=== PATIENT | male | born 2005 | race African-American/Black ===

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

== ENCOUNTER 2025-04-10 09:41 | Emergency (ER) | payer BC, SELFPAY ==
[2025-04-10 09:52] VITALS: BP 108/73; PULSE 66; RESP 18; TEMP 36.9; O2SAT 99; BMI 22.4
[2025-04-10 10:24] LABS: IDNOW Serial# 55D5AD1C; Strep A Nucleic Acid Negative (Negative)
[2025-04-10 11:01] LABS: Influenza A PCR NEGATIVE (Negative); Influenza B PCR NEGATIVE (Negative); Resp Syncy Virus RNA Qual PCR NEGATIVE (Negative); SARS COV2 PCR INHOUSE NEGATIVE (Negative)
--- NOTE | 2025-04-10 11:14 | ED.GENADULT ---
HPI - General Adult General Chief complaint: General Medical Stated complaint: Testing For Strep Time Seen by Provider: 04/10/25 11:14 Source: patient Mode of arrival: ambulatory Limitations: no limitations History of Present Illness ED Provider: ROSHAN PEPE narrative: healthy 20 yo male no sig PMH here with sore throat x 2 days pain with swallowing, no fevers. his GF has strep they share drinks, vape and kiss. he wants to get checked out. she is on abx. complaint: sore throat Onset (ago): day(s) (2) Location: mouth Radiation: non-radiation Severity: mild Quality: other (sore) Pain Consistency: intermittent Relieving factors: none Exacerbating factors: other (swallowing) Associated symptoms: denies other symptoms Treatments prior to arrival: none Related Data Previous Rx's ?Medication ?Instructions ?Recorded cephalexin 500 mg capsule 500 mg PO QID #28 caps 03/06/23 doxycycline hyclate 100 mg tablet 100 mg PO BID #14 tabs 03/06/23 amoxicillin 500 mg tablet 500 mg PO BID 10 days #20 tabs 04/10/25 Allergies Allergy/AdvReac Type Severity Reaction Status Date / Time No Known Allergies Allergy Verified 04/10/25 09:53 Review of Systems Review of Systems: Constitutional : No Fever, No Chills, No Fatigue ENT/Mouth : pos sore throat, No Rhinorrhea Eyes: No Eye Pain, No Swelling, No Redness Cardiovascular : No Chest Pain, No SOB, No Dyspnea on Exertion Respiratory : No Cough, No Sputum Gastrointestinal : No Nausea, No Vomiting, No Diarrhea, No abdominal Pain Genitourinary : No Dysuria, No Urinary Frequency, No Hematuria, Musculoskeletal : No joint pain, No Myalgias, No Joint Swelling Skin : No Skin Lesions, No rash All other systems reviewed and are negative [facility] Past Medical History Attestation statement: The following information was validated with the patient. Source: old records reviewed Medical History No pertinent past medical history Social History Social History e-Cigarette/Vaping Use: Currently Using Physical Exam ED Vital Signs: Vital Signs - 24 hr 04/10/25 09:52 Temperature 98.4 F Pulse Rate 66 Respiratory Rate 18 Blood Pressure 108/73 Pulse Oximetry 99 Oxygen Delivery Method Room Air BMI result Body Mass Index 22.4 Appearance: Alert. Oriented X3. No acute distress. Eyes: Pupils equal, round and reactive to light. ENT: Pharynx mild erythema/exudates/mild tonsilar swelling, uvulia is midline Neck: Normal inspection. Neck supple. CVS: Normal heart rate and rhythm. Pulses normal. Respiratory: No respiratory distress. Breath sounds normal. Abdomen: Soft and nontender. Skin: Skin warm and dry. Normal skin color. Normal skin turgor. Extremities: No lower extremity edema. No calf ttp Neuro: Oriented X 3. No motor deficit. No sensory deficit. CN2-12 intact Medical Decision Making Medical Decision Making [facility] Narrative: 20 yo male healthy here with c/o sore throat x 2 days after strep exposure clinically looks like strep and with exposure and symptoms will start on amoxicillin. 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 stable for DC, no drooling, stridor, sig swelling Differential Diagnosis Differential Diagnoses: The differential diagnosis associated with the presentation includes strep throat viral syndrome Lab Data [facility] Lab Attestation statement: I reviewed the patient's lab results. Labs: Lab Results 04/10/25 Range/Units 10:13 Influenza Type A (PCR) NEGATIVE (Negative) Influenza Type B (PCR) NEGATIVE (Negative) RSV RNA Qual (PCR) NEGATIVE (Negative) SARS-CoV-2 RNA (RT-PCR) NEGATIVE (Negative) S. pyogenes GrpA CODEY Negative (Negative) Prescription Management I considered prescription management with: Antibiotic Discharge Plan Discharge Clinical Impression: Strep throat Patient Disposition: Home, Self-Care Instructions: Strep Throat (ED) Additional Instructions: return for any worsening symptoms or concerns take all antibiotics throw away toothbrush in 24 hours On amoxicillin softer bowel movements are to be expected. Call your provider if you move your bowels more than 4 times a day, your bowel movements are almost all liquid, or you get a rash.? Prescriptions: New amoxicillin 500 mg tablet 500 mg PO BID 10 Days Qty: 20 0RF No Action cephalexin 500 mg capsule 500 mg PO QID Qty: 28 0RF doxycycline hyclate 100 mg tablet 100 mg PO BID Qty: 14 0RF Print Language: Amharic
[2025-04-10 11:36] VITALS: BP 108/73; PULSE 66; RESP 18; TEMP 36.9; O2SAT 99
--- OUTSIDE RECORDS SUMMARY | 2025-04-10 12:35 | XMS_ITS | Patient Health Record ---
Author Organization [facility] Address [address] [place] [address] Care Team Providers Care Automotive Electrician Helper Name Role Phone DIXIE STEPHENSON Unavailable Allergies No Known Allergies Reason For Referral No Information Medications Medication SIG (Take, Route, Frequency, Duration) Notes Start Date End Date Status guanFACINE HCl Not-T aking cloNIDine Not-Taking Albuterol Sulfate HFA 108 (90 Base) MCG/ACT 1 puff as needed Inhalation every 6 hrs for 30 days 12/02/2023 Active traZODone HCl Not-Ta loyd Problems Problem Type SNOMED Code ICD Code Onset Dates Problem Status W/U Status Risk Notes Problem 483396389 Encounter for general adult medical examination without abnormal findings (Z00.00) Active confirmed Problem 57956932 Chest pain, unspecified type (R07.9) Active confirmed Problem 258360699 SOB (shortness of breath) (R06.02) Active confirmed Problem 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
--- OUTSIDE RECORDS SUMMARY | 2025-04-10 12:35 | XMS_ITS | Encounter Summary ---
Author Organization [facility] Address [address] [place] [id number] Phone Care Team Providers Care Dental Intern Name Role Phone Iam Morel MD Primary Care Provider [phone] Reason for Visit * Reason Comments Med Refill Encounter Details Date Type Department Care Team (Late st Contact Info) Description 09/08/2020 Refill Pediatric And Adolescent Medicine - [address] [phone] Iam Morel MD [address] [place] [address] Sleep disturbance Social History Tobacco Use Types Packs/Day Years Used Date Smoking Tobacco: Never Smokeless Tobacco: Never Hunger/Food Answer Date Recorded No 08/16/2020 Stable Housing Answer Date Recorded No 08/16/2020 Transportation Concerns Answer Date Rec orded No 08/16/2020 Hazards in Home Answer Date Recorded No 12/05/2018 Financing Utilities Answer Date Recorde d No 12/05/2018 Safety at Home Answer Date Recorded No 12/05/2018 Outside Support Answer Date Recorded No 12/05/2018 Understanding Health Concerns Answer Da te Recorded No 12/05/2018 Financing Health Concerns Answer Date R ecorded No 12/05/2018 Missing School or Work Answer Date Segun rded No 12/05/2018 Sex and Gender Information Value Date Recorded Sex Assigned at Not on file Legal Sex Male 6:35 PM EDT Gender Identity Not on file Sexual Orientation Bisexual 10/24/2019 9: 34 AM EST documented as of this encounter Miscellaneous Notes * Telephone Encounter - Nadege Reid RN - 09/09/2020 4:34 PM EDT Refill request for hydroxyzine. Telephone note from 08/29 stating side effects from that med. was toD/C and GN prescribed Clonidine. To trial for 1 week and call with update I called and spoke with mom. Reports that Rod started with the 1/2 tab of Clonidine as advised, then last night took a full tablet. Reports to mom that he feels the full tablet helped him fall asleep faster and she says he slept all night until she woke him this morning. Says he did miss a couple nights of the med last week as he works nights and forgot to take it . Has 3 tablets left now advised that I will forward message to GN with update. mom says she will be in office tomorrow as brother has appt with GN Will refuse pharmacy refill request documented in this encounter Plan of Treatment Not on file documented as of this encounter Visit Diagnoses Diagnosis Sleep disturbance Unspecified sleep disturbance documented in this encounter Care Teams Dental Intern Relationship Specialty Start Date End Date Iam Morel MD [address] [place] [address] PCP - General 03/29/18 documented as of this encounter
--- OUTSIDE RECORDS SUMMARY | 2025-04-10 12:35 | XMS_ITS | Encounter Summary ---
Author Organization [facility] Address [address] [place] [phone] Phone Care Team Providers Care Mixer Crane Operator Name Role Phone Iam Morel MD Primary Care Provider [phone] Encounter Details Date Type Department Care Team (Late st Contact Info) Description 08/22/2012 Conversion Encounter Pediatric And Adolescent Medicine [facility] [address] [place] [phone] Social History Tobacco Use Types Packs/Day Years Used Date Smoking Tobacco: Never Assessed Sex and Gender Information Value Date Recorded Sex Assigned at Not on file Legal Sex Male 6:35 PM EDT Gender Identity Not on file Sexual Orientation Bisexual 10/24/2019 9: 34 AM EST documented as of this encounter Plan of Treatment Not on file documented as of this encounter Visit Diagnoses Not on filedocumented in this encounter Care Teams Mixer Crane Operator Relationship Specialty Start Date End Date Iam Morel MD [address] [place] [address] PCP - General 03/29/18 documented as of this encounter
--- OUTSIDE RECORDS SUMMARY | 2025-04-10 12:36 | XMS_ITS | Clinical Summary ---
Author Organization [facility] Address [address] [place], [place] [id number] Phone Care Team Providers Care Electronic Coils Supervisor Name Role Phone Iam Morel MD Primary Care Provider [phone] Allergies Active Allergy Reactions Criticality Noted Date Comments Amphetamine-Dextroamphet Er Other (see comments) Increase anger Cat Dander Itching 06/10/2021 Gramineae Pollens Itching 06/10/2021 Molds & Smuts Itching 06/10/2021 Pollen Extract Itching 06/10/2021 Medications cloNIDine 0.1 MG tabletIndications :Sleep disturbance Take 1 tablet daily, as directed, at about 9 PM to aid sleep. 90 tablet 3 1 Active tretinoin 0.025 % creamIndications: Other acne Apply small amount daily as directed to acne prone areas 45 g 3 2 Active albuterol HFA 108 (90 Base) MCG/ACT inhalerIndication s:Moderate persistent reactive airway disease with acute exacerbation Inhale 3 puffs every 4 (four) hours as needed for wheezing. 1 Units 3 Active Active Problems Problem Noted Date Diagnosed Date Acute cough 11/11/2022 Assessment & Plan (11/11/2022 5:28 PM EST): Patient Instructions Uncertain cause of SOB, Chest Pain and Cough. ? ? Suspect Asthma or Hypersensitivity Pneumonitis ? ? Check CXR ? ? Prednisone 60 mg daily x 5 days ? ? Albuterol inhaler 3 puffs , 4x daily for 1 week ? ? QUIT SMOKING AND SMOKE EXPOSURE MUCH POSSIBLE ? ? Recheck in 2 weeks ? ? Axillary Lymph node likely related to local axillary skin irritation Variable compliance with medication therapy 12/2019 Assessment & Plan (08/15/2020 10:20 AM EDT): This is a wildcard--I have a hard time truly understanding how often & how much he takes his medications. We had a long discussion about this w/ his mom. Discussed that he CANNOT take more caldera the recommended dose as it may be dangerous. He should strive to take recommended meds daily to know how they work for him. Advised not taking any supplements or buying other medications on-line etc. About 15 min on this topic alone. Assessment & Plan (04/08/2020 8:43 AM EDT): Focalin XR and Guanfacine work best when taken daily as directed. Sleep disturbance 03/14/2019 Assessment & Plan (11/25/2021 5:52 PM EST): Doing well on clonidine 0.1 mg at bedtime Recheck in 4 months Assessment & Plan (06/10/2021 6:04 PM EDT): Clonidine 0.1 qhs- disc Assessment & Plan (10/29/2020 3:28 PM EST): Generally better 10-6 overall. Clonidine 0.1 mg helps a lot. Assessment & Plan (08/15/2020 10:17 AM EDT): Use 25 mg hydroxyzine at about 9-10 PM--goal is 8 hours per night. Discussed in detail--could try other products as needed. Melatonin not really working for him. Assessment & Plan (04/08/2020 8:41 AM EDT): Sleep Hygiene for Teens Teens typically need about 8-10 hours of sleep per night, but it is common for the average teen to get 7 hours or less per night. What are some factors that prevent teens from getting enough sleep? ? ? Shifting of the biological clock. After puberty, a teen? s internal clock shifts about 2 hours. For example, if a teen fell asleep by 9 pm before, he/she typically is not tired until after 11 pm. This also means that he/she naturally will want to sleep 2 hours later the following morning. ? ? Early school start times. Most school districts start classes as early as 7 a.m., which means teens have to get up as early as 5 a.m. to get ready and make it to school in a timely manner. ? ? Having a busy social life. Most teens partake in packager head activities such as clubs, sports, part-time jobs, or tobacco educator, on top of the homework that? s assigned daily and must be completed each evening. Socializing also continues through phone and computer use, which can keep them up even later. What is affected by not getting enough sleep? ? ? Mood. Not getting enough sleep can cause teens to be irritable and carlisle all day. Controlling their moods can be an issue, and they can fi nd themselves frustrated or upset more easily. ? ? Behavior. Teens who are not getting enough sleep are more prone to risk-taking behaviors such as drinking alcohol and driving recklessly. ? ? Thinking. Sleep deprivation can result in attention problems, memory problems, lead to bad decision-making, slow down reaction time and stunt creativity. These are all important for academic success. ? ? Academic performance. Teens who are sleep deprived are more likely to do poorly in school, fall asleep during class, have multiple school absences or be consistently tardy. ? ? Athletic performance. Sleep deprived teens are more likely to perform poorly in after-school sports due to slower reaction times. ? ? Driving. Teens are the most prone to fall asleep while behind the wheel. This can be highly dangerous, especially combined with other negative eff ects such as slower reaction times and being easily distracted. What can I do? ? ? Keep track of sleep patterns and schedules. ? ? Maintain a regular sleep schedule. Teens should be going to bed and waking up at around the same time every day, including non-school nights. Try to keep the difference in sleep and wake times within one hour. ? ? Be consistent on weekends. Although teens can stay up a little longer, they should not sleep in to catch up on sleep they missed during the week. It will make it harder to get back on track for their regular schedule. ? ? Create a sleep-friendly physical environment. ? ? The bedroom should be comfortable, cool, quiet, and dark. A bedroom that is warmer than 75 degrees can make it harder to fall and stay asleep. ? ? The bed should only be used for sleeping. Try not to do homework, read a book, or listen to music in bed. ? ? Keep a consistent bedtime routine. Try to ? wind down? by doing less stimulating activities such as reading or listening to calm music. Do not use this time to watch television, cram in more studying, use the computer, talk on the phone, or exercise. Here are some additional important tips: Try to: ? ? Incorporate exercise into your daily routine. It may help you fall asleep more easily and sleep more deeply. ? ? Take a break and go outside for some time every day, especially in the morning. Getting sun exposure helps your body keep its internal clock on track. ? ? Eat meals regularly, and avoid going to bed on an empty stomach. However, do not eat a full meal an hour before bed, and try to opt for a light snack instead. Avoid: ? ? Caffeine. Avoid consuming caff eine (i.e. soda, coff ee, tea, energy drinks or chocolate) in the late afternoon or evening. ? ? Alcohol. Alcohol is not only bad for your overall health, but it also disrupts sleep. You may have night awakenings. ? ? Smoking. Smoking also disrupts sleep. It is best for your health not to smoke at all, but try to not smoke for at least an hour before bedtime if you do. ? ? Sleeping pills. Do not use sleeping pills or other [id number]-[id number] sleep aids. They can potentially be dangerous and you may depend on them once your sleep problems return. Assessment & Plan (12/19/2019 4:54 PM EST): Sleep Hygiene for Teens --TAKE GUANFACINE NIGHTLY ! Teens typically need about 8-10 hours of sleep per night, but it is common for the average teen to get 7 hours or less per night. What are some factors that prevent teens from getting enough sleep? ? ? Shifting of the biological clock. After puberty, a teen? s internal clock shifts about 2 hours. For example, if a teen fell asleep by 9 pm before, he/she typically is not tired until after 11 pm. This also means that he/she naturally will want to sleep 2 hours later the following morning. ? ? Early school start times. Most school districts start classes as early as 7 a.m., which means teens have to get up as early as 5 a.m. to get ready and make it to school in a timely manner. ? ? Having a busy social life. Most teens partake in packager head activities such as clubs, sports, part-time jobs, or tobacco educator, on top of the homework that? s assigned daily and must be completed each evening. Socializing also continues through phone and computer use, which can keep them up even later. What is affected by not getting enough sleep? ? ? Mood. Not getting enough sleep can cause teens to be irritable and carlisle all day. Controlling their moods can be an issue, and they can fi nd themselves frustrated or upset more easily. ? ? Behavior. Teens who are not getting enough sleep are more prone to risk-taking behaviors such as drinking alcohol and driving recklessly. ? ? Thinking. Sleep deprivation can result in attention problems, memory problems, lead to bad decision-making, slow down reaction time and stunt creativity. These are all important for academic success. ? ? Academic performance. Teens who are sleep deprived are more likely to do poorly in school, fall asleep during class, have multiple school absences or be consistently tardy. ? ? Athletic performance. Sleep deprived teens are more likely to perform poorly in after-school sports due to slower reaction times. ? ? Driving. Teens are the most prone to fall asleep while behind the wheel. This can be highly dangerous, especially combined with other negative eff ects such as slower reaction times and being easily distracted. What can I do? ? ? Keep track of sleep patterns and schedules. ? ? Maintain a regular sleep schedule. Teens should be going to bed and waking up at around the same time every day, including non-school nights. Try to keep the difference in sleep and wake times within one hour. ? ? Be consistent on weekends. Although teens can stay up a little longer, they should not sleep in to catch up on sleep they missed during the week. It will make it harder to get back on track for their regular schedule. ? ? Create a sleep-friendly physical environment. ? ? The bedroom should be comfortable, cool, quiet, and dark. A bedroom that is warmer than 75 degrees can make it harder to fall and stay asleep. ? ? The bed should only be used for sleeping. Try not to do homework, read a book, or listen to music in bed. ? ? Keep a consistent bedtime routine. Try to ? wind down? by doing less stimulating activities such as reading or listening to calm music. Do not use this time to watch television, cram in more studying, use the computer, talk on the phone, or exercise. Here are some additional important tips: Try to: ? ? Incorporate exercise into your daily routine. It may help you fall asleep more easily and sleep more deeply. ? ? Take a break and go outside for some time every day, especially in the morning. Getting sun exposure helps your body keep its internal clock on track. ? ? Eat meals regularly, and avoid going to bed on an empty stomach. However, do not eat a full meal an hour before bed, and try to opt for a light snack instead. Avoid: ? ? Caffeine. Avoid consuming caff eine (i.e. soda, coff ee, tea, energy drinks or chocolate) in the late afternoon or evening. ? ? Alcohol. Alcohol is not only bad for your overall health, but it also disrupts sleep. You may have night awakenings. ? ? Smoking. Smoking also disrupts sleep. It is best for your health not to smoke at all, but try to not smoke for at least an hour before bedtime if you do. ? ? Sleeping pills. Do not use sleeping pills or other lshv-ybk-dliwjrt sleep aids. They can potentially be dangerous and you may depend on them once your sleep problems return. Assessment & Plan (07/25/2019 8:19 PM EDT): Discussed, sleep hygiene Assessment & Plan (03/14/2019 5:14 PM EDT): Try incr GuanfacineER from 2 to 3 mg daily Discussed good sleep hygiene Attention deficit disorder with hyperactivity Overview (07/06/2018): attention-deficit hyperactivity disorder (ADHD), predominantly hyperactive type (314.01) Onset: 09/15/2015 Added by: Iam Morel Assessment & Plan (11/25/2021 5:53 PM EST): Continue present medication as discussed--Focalin XR 10 mg. Advised to take daily. School services such as 504 plan as needed Discussed medication effects and side effects Call for refill when down to last 5-7 tablets/capsules Healthy diet, regular exercise and at least 8 hours sleep nightly encouraged Assessment & Plan (06/10/2021 6:04 PM EDT): Patient Instructions Continue present medications as discussed Focalin XR 15 mg daily in AM Clonidine 0.1 mg daily around 9-11 pm Discussed. Take EVERYDAY : ) School services such as 504 plan as needed Discussed medication effects and side effects Call for refill when down to last 5-7 tablets/capsules Healthy diet, regular exercise and at least 8 hours sleep nightly encouraged Assessment & Plan (10/29/2020 3:42 PM EST): Continue present medication as discussed Focalin XR 15 mg daily in AM & Guanfacine ER 3 mg daily in evening. NEED plan for getting him medications when he is in [facility] for 6 months- November to May 2021. School services such as 504 plan as needed Discussed medication effects and side effects Call for refill when down to last 5-7 tablets/capsules Healthy diet, regular exercise and at least 8 hours sleep nightly encouraged Assessment & Plan (08/15/2020 10:17 AM EDT): Stop Focalin XR due to sadness side effect. Use Guanfacine ER 3 mg in the morning around 7 -8 AM. No other ADD meds for now. Discussed in detail, that this should help w mood, and attention, hopefully w/o any side effects. Assessment & Plan (04/08/2020 8:42 AM EDT): Continue present medication as discussed TAKE FOCALIN XR DAILY ON SCHOOL DAYS--CALL WHEN RUNNING LOW FOR A REFILL : ) Take Guanfacine ER Daily in the evening as well. REFILLS SENT IN FOR BOTH MEDS. School services such as 504 plan as needed Discussed medication effects and side effects Call for refill when down to last 5-7 tablets/capsules Healthy diet, regular exercise and at least 8 hours sleep nightly encouraged Assessment & Plan (12/19/2019 4:52 PM EST): NEEDS to take Guanfacine every evening around about 9 PM. Change to Focalin XR 15 in the Morning EVERYDAY. Recheck in 3 months. Call if concerns. 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 Assessment & Plan (10/24/2019 10:51 AM EST): Continue Guanfacine ER 3 mg evenings And retry lower dose of Concerta 27 mg (was at 36 mg) Mom to call in 2-3 weeks w update on the effectiveness of Concerta. Needs reminder system for taking meds daily. Discussed in detail. 15 min on this issue alone. Assessment & Plan (03/14/2019 5:14 PM EDT): Doing well on 36 mg Concerta daily x 3 mo refill Incr Guanfacine Er from 2 to 3 mg daily to try and lessen hyperactivity. Mood issues much better. Assessment & Plan (10/19/2018 11:04 AM EST): Continue present medication as discussed School services such as 504 plan as needed Discussed medication effects and side effects Call for refill when down to last 5-7 tablets/capsules Healthy diet, regular exercise and at least 8 hours sleep nightly encouraged Recheck in 3-4 months. Assessment & Plan (07/06/2018 7:56 PM EDT): Med refills given today since pt has been out for months, with f/up visit next week with GN already scheduled Resolved Problems Problem Noted Date Diagnosed Date Resolved Date Vegetarian diet 06/10/2021 11/25/2021 Assessment & Plan (06/10/2021 6:04 PM EDT): Needs to be taking B12, has fluctuated on and off, some chicken on and off. Very healthy diet, beans, some dairy/milk, eggs Wt is good Anxiousness 08/15/2020 11/25/2021 Assessment & Plan (10/29/2020 3:41 PM EST): Improved overall, no treatment needed at this time. Assessment & Plan (08/15/2020 10:25 AM EDT): Discussed: Generalized Anxiety Disorder (GAD7) 08/13/2020 04/08/2020 ANEL 7 Score 10 4 Some recent data might be hidden 5-9 mild anxiety; 10-14 moderate anxiety; >15 severe anxiety PHQ9 Screen(s) 08/13/2020 04/08/2020 03/14/2019 01/31/2019 Score 6 6 3 10 Consider counseling. Better regular sleep should help a lot. Discussed physical activity. Recheck WCC in 2.5 months, prn, discussed Short stature 07/25/2019 08/13/2020 Assessment & Plan (10/24/2019 9:37 AM EST): Will watch and wait - bone age suggested he was done growing - doesn't seem to be true. 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 Assessment & Plan (10/19/2018 1:32 PM EST): On Accutane, sees derm Assessment & Plan (07/06/2018 7:43 PM EDT): Severe and possibly superinfected today?-Begin Augmentin x 10 days- then Oral Minocycline and Tretinoin QHS, refer to Derm to discuss Accutane Immunizations Immunization Administration Dates Next Due DTaP 04/03/2008, 6,01/01/2006, 004,2004 DTaP 5 04/03/2008, 6,01/01/2006, 004,2004 HPV Vaccine 9 Valent 10/19/2018,10/25/2017 Hep A, ped/adol 04/11/2009,04/03/2008 Hep B, ped/adol 2004,2004,2004 Hib (PRP-T) 01/01/2006,2004,2004 IPV 04/03/2008, 6,2004, 004 MMR 04/03/2008,01/01/2006 Meningococcal B Trumenba 11/25/2021 Meningococcal Conj (Menactra) MCV4P 04/08/2020,0 03/24/2015 Pneumococcal Conjugate 01/01/2006,2004 Tdap 03/24/2015 Varicella 04/03/2008,01/01/2006 Family History Medical History Relation Name Comments ADD / ADHD Brother Depression Brother Eczema Brother Obesity Brother Depression Mother Eczema Mother Food allergies Mother Obesity Mother Asthma Sister Eczema Sister Food allergies Sister Obesity Sister Thyroid disease Sister Relation Name Status Comments Brother Mother Sister Social History Tobacco Use Types Packs/Day Years Used Date Smoking Tobacco: Never Smokeless Tobacco: Never Hunger/Food Answer Date Recorded In the last 12 months, did y ou or your family ever eat less than you felt you should because there wasn't enough money for food? No 10/29/2020 Stable Housing Answer Date Recorded Are you worried that in the next 2 months you may not have stable housing? No 10/29/2020 Transportation Concerns Answer Date Rec orded In the last 12 months, have you or your family ever had to go without healthcare because you didn't have a way to get there? No 10/29/2020 Hazards in Home Answer Date Recorded Think about the place you li ve. Do you have problems with any of the following? Pests (mice or roaches), mold, no/not working smoke detectors, water leaks, no window guards. No 2019 Financing Utilities Answer Date Recorde d In the last 12 months, has t he electric, gas, oil, or water company threatened to shut off your services in your home? No 10/29/2020 Safety at Home Answer Date Recorded Are you or your family worried about feeling saf e in your home? No 10/29/2020 Outside Support Answer Date Recorded Do you feel that you need mo re support from other people or programs to help you care for yourself or your family? No 10/29/2020 Understanding Health Concerns Answer Da te Recorded Do you need help understandi ng your or your child's healthcare needs (diagnosis, medications, plan, etc.)? No 10/29/2020 Financing Health Concerns Answer Date R ecorded In the last 12 months, was t here a time when your child needed to see a doctor or get medications or supplies but could not because of cost? No 10/29/2020 Missing School or Work Answer Date Segun rded Did you or your child miss s chool or work because of a health problem that could have been avoided? No 10/29/2020 Sex and Gender Information Value Date Recorded Sex Assigned at Not on file Legal Sex Male 6:35 PM EDT Gender Identity Not on file Sexual Orientation Bisexual 10/24/2019 9: 34 AM EST Last Filed Vital Signs Vital Sign Reading Time Taken Comments Blood Pressure 90/60 06/10/2023 8:35 AM EDT Pulse 78 06/10/2023 8:35 AM EDT Temperature 36.9 ??C (98.4 ??F) 06/10/2023 8:35 AM ED T Respiratory Rate 24 06/10/2023 8:35 AM EDT Oxygen Saturation 97% 06/10/2023 8:35 AM EDT Inhaled Oxygen Concentration - - Weight 56.6 kg (124 lb 12.8 oz) 06/10/2023 8:35 AM EDT Height 164 cm (5' 4.57 ) 06/10/2023 8:35 AM EDT Body Mass Index 21.05 06/10/2023 8:35 AM EDT Plan of Treatment Health Maintenance Due Date Last Done Comments Men B Vaccine (2 of 2 - Trumenba SCDM 2-dose series) 05/25/2022 11/25/2021 Influenza Vaccines (#1) 2024 COVID-19 Vaccine (2 - season) 2024 07/08/2021 DTaP,Tdap,and Td Vaccines (7 - Td or Tdap) 03/06/2033 03/06/2023, 03/24/2015, 04/03/2008, Additional history exists Hepatitis B Vaccines Completed 2004, 2004, 2004 HIB Vaccines Completed 01/01/2006, 09/21, 2004 Pneumococcal Vaccine Aged Out 01/01/2006, 10/05/20 04 No longer eligible based on patient's age to complete this topic IPV Vaccines Completed 04/03/2008, 12/22, 2004, Additional history exists MMR Vaccines Completed 04/03/2008, 01/01/2006 Varicella Vaccines Completed 04/03/2008, 01/01/2006 Hepatitis A Vaccines Completed 04/11/2009, 04/03/20 08 HPV Vaccines Completed 10/19/2018, 10/25/2017 Meningococcal Vaccine Completed 04/08/2020, 015 Insurance PPO Care Teams Electronic Coils Supervisor Relationship Specialty Start Date End Date [facility]l [facility] [address] [facility] [id number] PCP - General 03/29/18
--- OUTSIDE RECORDS SUMMARY | 2025-04-10 12:36 | XMS_ITS | Encounter Summary ---
Author Organization [facility] Address [address] [place], [place] [id number] Phone Care Team Providers Care Detective Chief Name Role Phone Iam Morel MD Primary Care Provider [phone] Reason for Visit * Reason Comments Med Refill Encounter Details Date Type Department Care Team (Late st Contact Info) Description 10/13/2018 Refill [facility] - [facility] [address] [facility] [place] [id number] Leslie Champion MD Acne vulgaris Social History Tobacco Use Types Packs/Day Years Used Date Smoking Tobacco: Never Smokeless Tobacco: Never Sex and Gender Information Value Date Recorded Sex Assigned at Not on file Legal Sex Male 6:35 PM EDT Gender Identity Not on file Sexual Orientation Bisexual 10/24/2019 9: 34 AM EST documented as of this encounter Miscellaneous Notes * Telephone Encounter - Iam Morel MD - 10/30/2018 1:37 PM EST Agree not to refill as he is seeing derm * Telephone Encounter - Jimena Bob RN - 10/19/2018 4:23 PM EST PT of GN- to [facility] team documented in this encounter Plan of Treatment Not on file documented as of this encounter Visit Diagnoses Diagnosis Acne vulgaris Other acne documented in this encounter Care Teams Detective Chief Relationship Specialty Start Date End Date Iam Morel MD [address] [facility] [place] [phone] PCP - General 03/29/18 documented as of this encounter
--- OUTSIDE RECORDS SUMMARY | 2025-04-10 12:36 | XMS_ITS ---
Author Organization [facility] Address [address] [place] [address] Care Team Providers Care Medical Transcription Name Role Phone DIXIE STEPHENSON Unavailable TOMY REYES Unavailable [phone] Encounters Encounter Location Date Provider Diagnosis [facility] [address] [place] [address] 01/19/2024 TOMY REYES Plan Of Treatment No Information Progress Notes * Wilver VALDEZOB:2005 (20 yo M)Acc No.[id number]:01/19/2024 CPE Patient:?ELIEZER Rod Provider:?Tomy Reyes MD :2005???Age:18 Y???Sex:Male Abdias e:01/19/2024 Address:[facility] [address] [id number] Subjective: * Chief Complaints: * ??? * Medical History:? Objective: * Vitals:? Assessment: Plan: * Treatment: * Billing Information: * Visit Code:? * Procedure Codes:? Care Plan Details* * Electronic signature of THOMAS REYES MD on 04/10/2025 at 12:35 PM EDT Sign off status: Pending * Provider:?Tomy Reyes MD Date:? 024 Generated for Samy sloan/Guy/eTransmitting on:?04/10/2025 12:35 PM EDT
--- OUTSIDE RECORDS SUMMARY | 2025-04-10 12:36 | XMS_ITS | Clinical Summary ---
Author Organization [facility] Address [address] [place] [address] Phone Care Team Providers Care Night Time Nanny Name Role Phone Physician, No Pcp Primary Care Provider Unavaila ble Allergies No known active allergies Medications No known medications Active Problems No known active problems Encounters Date Type Department Care Team Description 01/29/2025 10:31 PM EDT - 01/30/2025 1:09 AM EDT Emergency [facility] Emergency [address] [place] [address] Leonard Hinson MD Infectious mononucleosis without complication, infectious mononucleosis due to unspecified organism (Primary Dx) Discharge Disposition: Home or Self Care from Last 3 Months Social History Tobacco Use Types Packs/Day Years Used Date Smoking Tobacco: Never Smokeless Tobacco: Never Tobacco Cessation:Counseling Given: Not Answered Sex and Gender Information Value Date Recorded Sex Assigned at Male 01/29/2025 10:48 PM EDT Legal Sex Male 3:43 PM EDT Gender Identity Male 01/29/2025 10:48 PM EDT Sexual Orientation Straight 01/29/2025 10 :48 PM EDT Obstetrics History Last Filed Vital Signs Vital Sign Reading Time Taken Comments Blood Pressure 108/85 01/29/2025 8:51 PM EDT Pulse 81 01/29/2025 8:51 PM EDT Temperature 36.8 ??C (98.3 ??F) 01/29/2025 8:51 PM ED T Respiratory Rate 18 01/29/2025 8:51 PM EDT Oxygen Saturation 99% 01/29/2025 8:51 PM EDT Inhaled Oxygen Concentration - - Weight 54.4 kg (120 lb) 01/29/2025 8:51 PM EDT Height 165.1 cm (5' 5 ) 01/29/2025 8:51 PM EDT Body Mass Index 19.97 01/29/2025 8:51 PM EDT Plan of Treatment Health Maintenance Due Date Last Done Comments Meningococcal B Vaccine (2 of 2 - Trumenba SCDM 2-dose series) 05/25/2022 11/25/2021 COVID-19 Vaccine (2 - season) 2024 07/08/2021 Annual Well Child Visit (3-21 years old) 08/30/2024 11/25/2021, 10/29/2020, 10/24/2019, Additional history exists Depression Screening 08/30/2024 HIV Screening 08/30/2024 Hepatitis C Screening 08/30/2024 Social Influencers of Health Screening 08/30/2024 Influenza Vaccine (Season Ended) 2025 DTaP,Tdap,and Td Vaccines (7 - Td or Tdap) 03/06/2033 03/06/2023, 03/24/2015, 04/03/2008, Additional history exists Hepatitis B Vaccines Completed 2004, 2004, 2004 HIB Vaccines Completed 01/01/2006, 09/21, 2004 Pneumococcal Vaccine: Pediatrics (0 to 5 Years) and At-Risk Patients (6 to 64 Years) Aged Out 01/01/2006, 2004 No longer eligibl e based on patient's age to complete this topic IPV Vaccines Completed 04/03/2008, 12/22, 2004, Additional history exists MMR Vaccines Completed 04/03/2008, 01/01/2006 Varicella Vaccines Completed 04/03/2008, 01/01/2006 Hepatitis A Vaccines Completed 04/11/2009, 04/03/20 08 HPV Vaccines Completed 10/19/2018, 10/25/2017 Meningococcal ACWY Vaccine Completed 04/08/2020, RSV Immunization Patients Under 20 months Aged Out No longer eligible based on patient's age to complete this topic Procedures Procedure Name Priority Date/Time Associated Diagnosis Comments CULTURE THROAT STAT 01/29/2025 10:43 PM EDT [id number], RSV, FLU A AND B QUALITATIVE RT-PCR, INTERNAL LAB STAT 01/29/2025 10:43 PM EDT RAPID STREP A SCREEN STAT 01/29/2025 10:43 PM EDT XR NECK SOFT TISSUE STAT 01/29/2025 9 :00 PM EDT from Last 3 Months Results * [id number], RSV, Influenza A and B qualitative RT-PCR (01/29/2025 10:43 PM EDT) Influenza A PCR Not Detected Not Detected LAB MICROBIOLOGY METHOD 01/30/2025 12:11 AM EDT [facility] Influenza B PCR Not Detected Not Detected LAB MICROBIOLOGY METHOD 01/30/2025 12:11 AM EDT [facility] RSV PCR Not Detected Not Detected LAB MICROBIOLOGY METHOD 01/30/2025 12:11 AM EDT [facility] SARS COV-2 Not Detected Not Detected LAB MICROBIOLOGY METHOD 01/30/2025 12:11 AM T [facility] Swab Both anterior nares / Unknown Non-blood Collection / Unknown 01/29/2025 10:43 PM EDT 01/29/2025 11:25 PM EDT Narrative [facility] - 01/30/2025 12:11 AM EDT Disclaimer: ??Testing was performed using the [employer] GeneXpert Xpress SARS-CoV-2 _Flu_RSV PLUS PCR assay. ??The manner in which this information is used to guide patient care is the responsibility of the healthcare provider. ??Results should be correlated with the clinical history, epidemiological data, and other data available to the clinician evaluating the patient. ??Negative results do not preclude infection. ??This test has been authorized by the FDA under an Emergency Use Authorization (EUA). ??This test is only authorized for the duration of time the declaration that circumstances exist justifying the authorization of the emergency use of in vitro diagnostic tests for detection of SARS-CoV-2 virus and/or diagnosis of COVID-19 infection under section 564 (b) (1) of the Act, 21 U.S.C 360bbb-3 (b) (1), unless the authorization is terminated or revoked sooner. ?? Reference Range: Not Detected Fact sheet for Healthcare providers can be found at https://www.fda.gov/media/934148/download. ?? Fact sheet for Healthcare patients can be found at https://www.fda.gov/media/783847/download. Xavier Isaac MD LAB MICROBIOLOGY - GENERAL ORDE JOHNSON Final Result Performing Organization Address City/[facility]/ZIP Co de Phone Number [facility] [address] [place] [address], * Rapid strep A screen (01/29/2025 10:43 PM EDT) Strep A Ag Negative Negative, Invalid 01/29/2025 11:41 PM EDT [facility] Comment:Refer to Throat Cult ure. Swab Structure of anterior portion of neck / Unknown Non-blood Collection / Unknown 01/29/2025 10:43 PM EDT 01/29/2025 11:25 PM EDT us Xavier Isaac MD LAB MICROBIOLOGY - GENERAL BECKA ORNELAS Final Result Performing Organization Address City/[facility]/ZIP Co de Phone Number [facility] [address] [place] [address], [place] [phone] * Culture throat (01/29/2025 10:43 PM EDT) Culture, Throat No pathogens isolated. 01/31/2025 12:56 PM EDT [facility] Swab Structure of anterior portion of neck / Unknown Non-blood Collection / Unknown 01/29/2025 10:43 PM EDT 01/29/2025 11:25 PM EDT us Xavier Isaac MD LAB MICROBIOLOGY - GENERAL BECKA MARTHAMISHEL Final Result [facility] [address] [place] [address], * XR Neck Soft Tissue (01/29/2025 9:00 PM EDT) Anatomical Region Laterality Modality Head and Neck Radiographic Farida ging 01/30/2025 8:21 AM EDT Impressions 01/30/2025 8:21 AM EDT FINDINGS/IMPRESSION: Soft tissues of the neck are within normal limits. ??Bones and lung apices are clear. ??Airway is patent. -------- FINAL REPORT -------- Dictated By: LESLIE OWEN Dictated Date: 01/30/2025 08:21 ET Assigned Physician: LESLIE OWEN Reviewed and Electronically Signed By: LESLIE OWEN Signed Date: 01/30/2025 08:21 ET Workstation ID: [id number] Transcribed By: Self Edit Transcribed Date: 01/30/2025 08:21 ET Narrative 01/30/2025 8:21 AM EDT XR NECK SOFT TISSUE INDICATION: ??Sore throat TECHNIQUE: XR NECK SOFT TISSUE COMPARISON: No priors available. Procedure Note Leslie Owen MD - 01/30/2025 XR NECK SOFT TISSUE INDICATION: Sore throat TECHNIQUE: XR NECK SOFT TISSUE COMPARISON: No priors available. IMPRESSION: FINDINGS/IMPRESSION: Soft tissues of the neck are within normal limits.Bones and lung apices are clear. Airway is patent. -------- FINAL REPORT -------- Dictated By: LESLIE OWEN Dictated Date: 01/30/2025 08:21 ET Assigned Physician: LESLIE OWEN Reviewed and Electronically Signed By: LESLIE OWEN Signed Date: 01/30/2025 08:21 ET Workstation ID: [id number] Transcribed By: Self Edit Transcribed Date: 01/30/2025 08:21 ET Leonard Hinson MD IMG XR PROCEDURES Final Result from Last 3 Months Insurance [facility] Care Teams Night Time Nanny Relationship Specialty Start Date End Date Physician, No Pcp PCP - General 11/28/24
== END 2025-04-10 11:19 | disposition home or self-care (01) ==
PROVIDERS: Emergency Provider Emergency Medicine
DX: J02.0 Streptococcal pharyngitis (principal); Z03.818 Encounter for observation for suspected exposure to other biological agents ruled out
CPT/HCPCS: 0241U; 87651; 99282; 99283